=== PATIENT | female | born 1995 | race Caucasian/White ===

== ENCOUNTER → 2024-12-17 14:17 | Outpatient (REF) | payer OTHER, SELFPAY | LOC: PNTC 14:17 | PROVIDERS: ATTENDING PHYSICIAN Nurse Practitioner Family | DX: O36.80X0 Pregnancy with inconclusive fetal viability, not applicable or unspecified (principal) | CPT/HCPCS: 76801 ==

== ENCOUNTER → 2025-01-07 11:14 | Outpatient (REF) | payer OTHER, SELFPAY | LOC: PNTC 11:14 | PROVIDERS: ATTENDING PHYSICIAN Nurse Practitioner Family | DX: Z36.0 Encounter for antenatal screening for chromosomal anomalies (principal); Z36.82 Encounter for antenatal screening for nuchal translucency | CPT/HCPCS: 76801; 76813 ==

== ENCOUNTER → 2025-03-04 13:25 | Outpatient (REF) | payer OTHER, SELFPAY | LOC: PNTC 13:25 | PROVIDERS: ATTENDING PHYSICIAN Nurse Practitioner Family | DX: Z36.3 Encounter for antenatal screening for malformations (principal); Z36.9 Encounter for antenatal screening, unspecified | CPT/HCPCS: 76805; 76817 ==

== ENCOUNTER → 2025-04-29 09:33 | Outpatient (REF) | payer OTHER, SELFPAY | LOC: PNTC 09:33 | PROVIDERS: ATTENDING PHYSICIAN Obstetrics & Gynecology | DX: Z34.03 Encounter for supervision of normal first pregnancy, third trimester (principal) | CPT/HCPCS: 36415; 86850; 86900; 86901; 96372; J2790 ==

== ENCOUNTER 2025-07-21 23:53 | Inpatient (IN) | payer OTHER, SELFPAY ==
[2025-07-22 00:27] VITALS: BP 123/86; BMI 28.0
[2025-07-22] MEDS: LR 1000 IV ×2 (00:30→01:45)
[2025-07-22 00:47] LABS: Hematocrit 37.0 % (37.0-47.0); Hemoglobin 12.8 g/dL (12.0-16.0); Mean Corp Hgb Conc. 34.6 g/dL (33.0-37.0); Mean Corpuscular Volume 90.2 fL (81.0-99.0); Nucleated Red Blood Cells % 0 %; Platelet Count 237 10^3/uL (130-400); Red Cell Dist. Width 13.0 % (11.5-14.5)
[2025-07-22] MEDS: FENTANYL/BUPIVACAINE 100 EPIDURAL ×2 (01:19→09:42)
[2025-07-22] MEDS: SUBLIMAZE 100 MCG EPIDURAL (01:19)
[2025-07-22] MEDS: XYLOCAINE-MPF 1% VIAL 3 ML INFIL (12:34)
[2025-07-22] MEDS: PITOCIN 30 UNITS/NSS 500 ML IV (12:53)
[2025-07-22] MEDS: TORADOL 15 MG IV (13:31)
[2025-07-22] MEDS: COLACE 100 MG PO (20:21)
[2025-07-22] MEDS: MOTRIN 600 MG PO (20:21)
[2025-07-23] MEDS: MOTRIN 600 MG PO ×4 (03:45→22:02)
[2025-07-23 04:30] LABS: Hematocrit 29.6 % (37.0-47.0); Hemoglobin 10.3 g/dL (12.0-16.0)
[2025-07-23] MEDS: PRENATAL PLUS 1 TABLET PO (09:55)
[2025-07-23] MEDS: COLACE 100 MG PO ×2 (09:56→20:43)
[2025-07-23 12:51] LABS: Syphilis/T. pallidum Ab Reflex Negative (Negative)
[2025-07-23] MEDS: TYLENOL 650 MG PO ×2 (13:52→22:02)
[2025-07-24] MEDS: TYLENOL 650 MG PO ×2 (04:11→10:39)
[2025-07-24] MEDS: MOTRIN 600 MG PO (04:11)
[2025-07-24] MEDS: COLACE 100 MG PO (08:19)
[2025-07-24] MEDS: PRENATAL PLUS 1 TABLET PO (08:19)
== END 2025-07-24 13:03 | disposition home or self-care (01) | DRG 807 ==
LOC: LDRP 23:53
PROVIDERS: Obstetrics & Gynecology; ADMITTING PHYSICIAN Student in an Organized Health Care Education/Training Program; FAMILY PHYSICIAN Internal Medicine
PROC: 10E0XZZ Delivery of Products of Conception, External Approach (ICD-10-PCS; 2025-07-22)
PROC: 10907ZC Drainage of Amniotic Fluid, Therapeutic from Products of Conception, Via Natural or Artificial Opening (ICD-10-PCS; 2025-07-22)
PROC: 0W8NXZZ Division of Female Perineum, External Approach (ICD-10-PCS; 2025-07-22)
DX: O48.0 Post-term pregnancy (principal); Z37.0 Single live birth; O70.1 Second degree perineal laceration during delivery; O77.0 Labor and delivery complicated by meconium in amniotic fluid; O26.893 Other specified pregnancy related conditions, third trimester; Z67.11 Type A blood, Rh negative; Z3A.40 40 weeks gestation of pregnancy
CPT/HCPCS: 85014; 85018; 85025; 86780; 86850; 86900; 86901; 88307